=== PATIENT | female | born 1975 | race Caucasian/White ===

== ENCOUNTER 2020-03-31 07:46 | Emergency (ER) | payer OTHER ==
[~2020-03-31] VITALS: Ht 154.9 cm; Wt 83.9 kg
[2020-03-31 07:55] VITALS: Ht 154.9 cm; Wt 83.9 kg
[2020-03-31 09:03] VITALS: BP 127/72
== END 2020-03-31 09:03 | disposition home or self-care (01) ==
LOC: ED 07:46
DX: F41.9 Anxiety disorder, unspecified (principal); R53.1 Weakness; R07.89 Other chest pain
CPT/HCPCS: J1885